=== PATIENT | male | born 1995 | race Caucasian/White ===

== ENCOUNTER → 2018-03-27 13:13 | Outpatient (CLI) | payer OTHER, SELFPAY ==
[2018-03-27 16:54] LABS: Urine N gonorrhoeae NOT DETECTED
[2018-03-27 17:40] LABS: Urine Chlamydia DETECTED
== END ==
PROVIDERS: PCP Physician Assistant; Visit Provider Physician Assistant
DX: R52 Pain, unspecified (principal)
CPT/HCPCS: 87491; 87591

== ENCOUNTER → 2020-05-09 12:01 | Outpatient (CLI) | payer OTHER, SELFPAY ==
--- NOTE | 2020-05-09 12:15 | DI.RAD.S_ITS ---
PROCEDURE: XR SHOULDER LT MIN 2V INDICATIONS: left shoulder pain TECHNIQUE: 3 views of the shoulder were acquired. COMPARISON: None. FINDINGS: Bones: No fractures or dislocations. No suspicious bony lesions. Visualized ribs appear intact. Soft tissues: No suspicious soft tissue calcifications. IMPRESSION: No acute radiographic findings. If there is continued pain, followup exam or additional imaging such as MRI or CT could be performed for further assessment. Dictated by: Delilah Avina M.D. on 05/09/2020 at 15:18 Approved by: Delilah Avina M.D. on 05/09/2020 at 15:19
== END ==
PROVIDERS: PCP Registered Nurse; Referring Provider Registered Nurse; Visit Provider Registered Nurse
DX: M25.512 Pain in left shoulder (principal)
CPT/HCPCS: 73030

== ENCOUNTER → 2022-04-15 14:53 | Outpatient (CLI) | payer BC, SELFPAY ==
[2022-04-15 16:01] LABS: Add Manual Diff / Slide Review NO; Basophils Absolute Auto 0 /uL (0-100); Basophils Percent Auto 0.6 % (0-2); Eosinophils Absolute Auto 100 /uL (0-450); Eosinophils Percent Auto 1.1 % (2-4); Hematocrit 41.3 % (41-53); Hemoglobin 14.7 g/dL (13.5-17.5); Lymphocytes Absolute Auto 1800 /uL (1100-4500); Lymphocytes Percent Auto 30.4 % (25-40); Mean Corpuscular HGB Conc 35.5 % (30-36); Mean Corpuscular Hemoglobin 32.3 PG (26-34); Mean Corpuscular Volume 90.8 fL (80-100); Monocytes Absolute Auto 500 /uL (0-900); Neutrophils Absolute Auto 3400 /uL (1500-7000); Neutrophils Percent Auto 58.9 % (50-75); Platelet Count 226 X10^3/uL (150-400); Red Blood Cell Count 4.54 X10^6/uL (4.5-5.9); White Blood Cell Count 5.8 X10^3/uL (4.5-11.0)
[2022-04-15 16:12] LABS: HEMOLYSIS < 15 (0-50); Iron 156 ug/dL (49-181)
[2022-04-15 16:16] LABS: Alanine Aminotransferase 36 IU/L (<50); Alkaline Phosphatase 47 U/L (38-126); Aspartate Aminotransferase 36 IU/L (17-59); BUN Creatinine Ratio 13.6 (6-22); Bilirubin Total 0.4 mg/dL (0.2-1.3); Blood Urea Nitrogen 14 mg/dL (9-20); C-Reactive Protein Quant < 0.5 mg/dL (<1.0); Calcium 9.5 mg/dL (8.4-10.2); Carbon Dioxide 26 mmol/L (22-32); Chloride 105 mmol/L (98-107); Estimated Glomerular Filt Rate > 60 mL/min (>60); Glucose 86 mg/dL (70-100); Potassium 4.1 mmol/L (3.4-5.1); Sodium 140 mmol/L (137-145); Total Protein 7.7 g/dL (6.3-8.2)
[2022-04-15 16:17] LABS: Albumin 4.8 g/dL (3.5-5.0); Albumin Globulin Ratio 1.7 (1.0-2.8); Globulin 2.9 g/dL (1.7-4.1); HEMOLYSIS < 15 (0-50)
[2022-04-15 16:26] LABS: Percent Iron Saturation 48 % (20-50); Total Iron Binding Capacity 327 ug/dL (261-462); Transferrin 264 mg/dL (206-381)
[2022-04-15 16:50] LABS: Ferritin 227 ng/mL (18-464)
[2022-04-16 16:45] LABS: Deamidated Gliadin Ab IgA 5 units (0-19); Deamidated Gliadin Ab IgG 1 units (0-19); Immunoglobulin A,Qn 225 mg/dL (90-386); t-Transglutaminase IgA <2 U/mL (0-3)
== END ==
PROVIDERS: PCP Family Medicine; Referring Provider Family Medicine; Visit Provider Family Medicine
DX: R10.9 Unspecified abdominal pain (principal); R19.7 Diarrhea, unspecified; M54.50 Low back pain, unspecified
CPT/HCPCS: 36415; 80053; 82728; 82784; 83516; 83540; 83550; 85025; 86140

== ENCOUNTER → 2022-04-20 09:17 | Outpatient (CLI) | payer BC, SELFPAY ==
[2022-04-22 16:07] LABS: Calprotectin, Stool < 16 ug/g (0-120)
[2022-04-23 14:14] LABS: Lactoferrin, Fecal Quant <1.00 ug/mL(g) (0.00-7.24)
== END ==
PROVIDERS: PCP Family Medicine; Referring Provider Family Medicine; Visit Provider Family Medicine
DX: R10.9 Unspecified abdominal pain (principal); R19.7 Diarrhea, unspecified
CPT/HCPCS: 83631; 83993